=== PATIENT | male | born 1950 | race African-American/Black ===

== ENCOUNTER 2018-03-29 21:46 | Inpatient (IN) ==
[2018-03-29 23:22] LABS: Apearance,Urine Slightly Hazy (Clear); Bilirubin,Urine Negative (Negative); Blood, Urine Small mg/dL (Negative); Glucose,Urine (UA) Negative (Negative); Hyaline Casts,Urine 3 /LPF (0-3); Ketones,Urine Negative (Negative); Mucus,Urine Occasional /LPF (Occasional); Nitrite,Urine Negative (Negative); Protein,Urine 30 MG/DL; RBC,Urine 1 /HPF (0-4); Squamous Epithelial Cell,Urine Occasional /HPF (0-10); Urine Color Yellow (Yellow); Urine Specific Gravity 1.019 (1.001-1.035); WBC,Urine <1 /HPF (0-6)
[2018-03-29 23:37] LABS: Basophils % 0.3 % (0.0-0.8); Hematocrit 33.3 VOL% (42.0-52.0); Hemoglobin 10.5 GM/DL (14.0-18.0); Immature Granulocytes % 0.5 %; Immature Granulocytes Absolute 0.02 #; Lymphocytes # 0.6 10*3/uL (1.4-4.0); Lymphocytes % 14.5 % (21.2-54.2); Mean Corpuscular HGB Conc 31.5 GM/DL (32-36); Mean Corpuscular Hemoglobin 26 PG (27-34); Mean Corpuscular Volume 81.6 FL (87-102); Mean Platelet Volume 12.7 FL (9.6-12.0); Monocytes # 0.5 10*3/uL (0.11-0.8); Monocytes % 11.9 % (1.7-12.7); Neutrophils # 2.8 10*3/uL (1.4-7.4); Neutrophils % 72.8 % (38.7-73.9); Platelet Count 152 T/CUMM (130-400); Red Blood Count 4.08 MC/CUMM (3.8-5.5); Red Cell Distribution Width 17.2 % (9.3-17.3); White Blood Count 3.8 T/CUMM (4-12)
[2018-03-29 23:44] LABS: INR 1.3; PT Patient Result 13.8 SECS; Partial Thromboplastin Time 24.5 SECS (0-40)
[2018-03-29 23:48] LABS: Albumin 3.3 G/DL (3.4-5.0); Bilirubin,Total 0.4 MG/DL (0.2-1.0); Calcium 9.2 MG/DL (8.5-10.1); Osmolality,Calculated 318.7 MOS/KG (273-304); Potassium 4.8 MMOL/L (3.5-5.1); Total Protein 10.2 G/DL (6.4-8.3)
[2018-03-30] MEDS ORDERED: ONDANSETRON 4 MG/2 ML VIAL IV PRN (03:50)
[2018-03-30] MEDS ORDERED: guaiFENesin/DM ER 600-30 MG TABLET PO PRN (03:50)
[2018-03-30] MEDS ORDERED: DOCUSATE SODIUM 100 MG CAPSULE PO PRN (03:50)
[2018-03-30] MEDS: DEXTROSE 5% NACL 0.45% 1,000 ML IV SCH ×3 (04:00→20:36)
[2018-03-30 05:04] LABS: Calcium 8.8 MG/DL (8.5-10.1); Osmolality,Calculated 321.4 MOS/KG (273-304); Potassium 5.1 MMOL/L (3.5-5.1)
[2018-03-30] MEDS: ENOXAPARIN 30 MG/0.3 ML SYRINGE SUBCUT SCH (10:10)
[2018-03-30] MEDS ORDERED: LORazepam 2 MG/1 ML VIAL IV ONE (10:48)
[2018-03-30] MEDS ORDERED: TUBERCULIN SKIN TEST 0.1 ML SYRINGE INTRADERM ONE (15:55)
[2018-03-30 16:33] LABS: Calcium 8.5 MG/DL (8.5-10.1); Osmolality,Calculated 314.6 MOS/KG (273-304); Potassium 4.4 MMOL/L (3.5-5.1)
[2018-03-30 22:47] LABS: Apearance,Urine CLEAR (Clear); Bilirubin,Urine Negative (Negative); Blood, Urine Moderate mg/dL (Negative); Glucose,Urine (UA) Negative (Negative); Ketones,Urine Negative (Negative); Nitrite,Urine Negative (Negative); Protein,Urine Negative; RBC,Urine 23 /HPF (0-4); Urine Color Yellow (Yellow); Urine Specific Gravity 1.016 (1.001-1.035); Urine Urobilinogen < 2.0 EU/DL (0.2-1.0); WBC,Urine 10 /HPF (0-6)
[2018-03-31] MEDS: ENOXAPARIN 30 MG/0.3 ML SYRINGE SUBCUT SCH (04:04)
[2018-03-31] MEDS: DEXTROSE 5% NACL 0.45% 1,000 ML IV SCH ×3 (04:04→23:31)
[2018-03-31 06:14] LABS: Basophils % 0.2 % (0.0-0.8); Eosinophils % 0.2 % (0.00-10.9); Hematocrit 27.7 VOL% (42.0-52.0); Immature Granulocytes % 0.4 %; Immature Granulocytes Absolute 0.02 #; Lymphocytes # 0.6 10*3/uL (1.4-4.0); Lymphocytes % 11.4 % (21.2-54.2); Mean Corpuscular HGB Conc 32.5 GM/DL (32-36); Mean Corpuscular Hemoglobin 26 PG (27-34); Mean Corpuscular Volume 80.1 FL (87-102); Mean Platelet Volume 11.4 FL (9.6-12.0); Monocytes # 0.4 10*3/uL (0.11-0.8); Monocytes % 7.3 % (1.7-12.7); Neutrophils # 4.5 10*3/uL (1.4-7.4); Neutrophils % 80.5 % (38.7-73.9); Platelet Count 133 T/CUMM (130-400); Red Blood Count 3.46 MC/CUMM (3.8-5.5); White Blood Count 5.6 T/CUMM (4-12)
[2018-03-31 06:40] LABS: Alanine Aminotransferase < 9 U/L (16-61); Albumin 2.5 G/DL (3.4-5.0); Alkaline Phosphatase 64 U/L (45-117); Aspartate Amino Transferase 19 U/L (0-37); Blood Urea Nitrogen 59 MG/DL (7-18); Calcium 8.3 MG/DL (8.5-10.1); Calcium 8.5 MG/DL (8.5-10.1); Glucose 120 MG/DL (74-106); Osmolality,Calculated 305.6 MOS/KG (273-304); Osmolality,Calculated 307.6 MOS/KG (273-304); Potassium 4.1 MMOL/L (3.5-5.1); Sodium 146 MMOL/L (136-145); Total Protein 8.6 G/DL (6.4-8.3)
[2018-03-31] MEDS ORDERED: DEXTROSE 50% 25 GM/50 ML VIAL IV PRN (08:43)
[2018-03-31] MEDS ORDERED: GLUCAGON 1 MG VIAL IM PRN (08:43)
[2018-03-31] MEDS: INSULIN REGULAR 100 UNIT/ML SUBCUT SCH ×3 (13:28→23:31)
[2018-03-31 16:06] LABS: Osmolality,Calculated 301.7 MOS/KG (273-304); Potassium 3.8 MMOL/L (3.5-5.1)
[2018-04-01] MEDS: ENOXAPARIN 30 MG/0.3 ML SYRINGE SUBCUT SCH (04:55)
[2018-04-01] MEDS: DEXTROSE 5% NACL 0.45% 1,000 ML IV SCH (05:01)
[2018-04-01] MEDS: INSULIN REGULAR 100 UNIT/ML SUBCUT SCH (05:31)
[2018-04-01 06:58] LABS: Calcium 8.8 MG/DL (8.5-10.1); Osmolality,Calculated 298.7 MOS/KG (273-304); Potassium 3.8 MMOL/L (3.5-5.1)
[2018-04-01 07:53] VITALS: BP 132/93
[2018-04-04 12:05] LABS: % CD4 (T Cells) 10 % (32-64); % CD8 (T Cells) 62 % (8-40); 4/8 Ratio 0.2 (>=0.9)
[2018-04-05 10:41] LABS: % CD16+CD56 (NK cells) 16 % (5-28); % CD19 (B Cells) 10 % (3-24); % CD4 (T Cells) 10 % (32-64); % CD8 (T Cells) 61 % (8-40); 4/8 Ratio 0.2 (>=0.9); CD16+CD56 (NK cells) 112 cells/mcL (59-513); CD19 (B Cells) 69 cells/mcL (45-409)
[2018-04-05 19:51] LABS: HIV-1 Genotypic PR-RT Drug Res INTERP; Tipranavir + Ritonavir SUSC
== END 2018-04-01 09:40 | disposition hospice, inpatient (51) | DRG 974 ==
LOC: EDBD → EDUNIT# → N.ED 21:46 → SUATTDRO 03-30 03:48 → N.EDINP 03-30 03:48 → N.2E 03-30 04:44 → N.3E 03-30 05:00
PROVIDERS: ADMIT Internal Medicine Infectious Disease; ATTEND Internal Medicine Cardiovascular Disease